=== PATIENT | female | born 1965 | race Caucasian/White ===

== ENCOUNTER → 2024-05-08 12:06 | Outpatient (REF) | payer OTHER, SELFPAY | LOC: RAD 12:06 | PROVIDERS: ATTENDING PHYSICIAN Nurse Practitioner | DX: M54.50 Low back pain, unspecified (principal) | CPT/HCPCS: 72110 ==

== ENCOUNTER → 2024-05-14 13:50 | Outpatient (REF) | payer OTHER, SELFPAY ==
--- NOTE | 2024-05-16 15:12 | PN.DIAED02 ---
Referral
DSME Class Series Code: [id number]
Referred For: Diabetes Self-Management Training, Management of Diabetes During , Medical Nutrition Therapy, Self-Blood Glucose Monitoring, Long-Term Complication Instruction, Accute Complication Instruction, Continuous Glucose Monitoring,
Medication management, Insulin Instruction, Care Coordination, Disease Management
PHI Release Authorization Form Signed: Yes
Demographic
(1) Type 2 diabetes mellitus without complications
Status: Acute Code(s): E11.9 - Type 2 diabetes mellitus without complications
Patient's primary language-: Swedish
Education: College degree
Occupation: Other
- Social
Primary Support Person: Self
Primary Care Takers: Self
Living Arrangements: Self & spouse, Family
- Learning Methods
Preferred Method: Lecture/audio, Hands-on demonstration, Video, Group discussion
Barriers to Learning: None
Glycemic Control
- Blood Glucose Monitoring Assessment
Date: 03/02/24 (FBS: 113 mg/dL)
Blood glucose monitoring at home: No (educated on a Contour Nex EZ meter)
- Hyperglycemia Assessment
Experiences Hyperglycemia: No
- Hypoglycemia Assessment
Patient carries glucose source: No
- Hemoglobin A1c
Date: 04/12/24
A1C Percentage (%): 6.5
Medical History of Diabetes
Family Diabetes History: Grandfather
Previous Diabetes Education: No
Previous visit with Dietitian: No
Complications/Comorbidity/Specialist: Other / symptoms (Irritable Bowel Syndrome)
Measures
- Anthropometrics
Height: 5 ft 3 in
Actual Weight: 207 lb
- Blood Pressure / Pulse
Blood pressure: 187/97 (185/88)
Pulse: 64 (65)
- Diabetes Management
Medical Management for Diabetes: Complete physical exam (04/04/24), Dental exam (11/24/23), Dilated eye exam (05/26/23), Other (covid vaccine: 07/28/20)
Notes:
Marci stated she is not on any blood pressure medication and that her numbers are usually low. Her initial B/P was elevated at 187/97 (64). I waited until after the visit to repeat and the results were: 159/88. She denied any headaches or dizziness
and stated she will re-check it when she went home. I contacted the primary care office and spoke with the RN to give her the above information. They were going to contact Marci to re-evaluate.
Self-Care
- Tobacco Usage
Do you now, or have you ever smoked?: Never smoked
- Alcohol & Drugs Usage
Drinks Alcohol: No
- Meals & Dining
Meals & Dining: Patient skips meals: No, Food Intolerance / Allergy: Yes (IBS), Cultural / Yarsanism Dietary Needs: No
Primary Food Cdc Associate: Self
Primary Aviation Safety Technician: Self
Dining Out Frequency: 1-3x per week
- Physical Activity
Physical Limitation: No
- Self Foot-Care
Foot Problems: None
- Patient-Self Assessment
General Health: Poor
Importance of Health: Extremely
Stress Level: Medium
Diabetes Interferes With:: Nothing
Barriers to Diabetes Management: Nothing
Depression Survey Score: 9
- Diabetes Identification
Carries Diabetes Identification: No
Care Plan
- Education Needs
Patient Education Needs: Diabetes disease process, Chronic complications, Acute complications, Medication, Monitoring, Physical activity, Psychosocial Adjustment, Nutritional management, Goal setting & problem solving
Recommended Diabetes Training Program based on assessment: Outpatient Diabetes Education Program
- Plan of Care
Plan of Care:
Marci presented for her initial assessment for the June DSME program. She was newly diagnosed in April, with an A1c of 6.5 %. She does not currently monitor her glucose at home but he MD office is doing a prior auth for a [employer] G7
sensor. I instructed her on how to use a Contour Next EZ meter and she was able to return demonstrate a fingerstick glucose. We reviewed a monitoring schedule and appropriate glucose levels fasting and 2 hours post meal. Marci's practitioner
offered her Metformin but she wanted to try to manage her glucose levels first without medication. She has a prescription for another A1c in 90 days. We discussed exercise and she is currently not doing any activity but plans to start walking. We
reviewed her goals and she will contact the office if she needs help setting up her Dexcom once it is approved. I spoke to her PCP's office regarding her elevated blood pressures before and after our appointment.
--- NOTE | 2024-05-16 15:30 | PN.DIAED04 ---
Education Record
- Education Record
Class Attended: Other (initial DSME assessment)
DSME Class Series Code: [id number]
Instructor: Nurse Practitioner (MARAH Coelho)
Pre-Program Knowledge: Needs review / Assistance
Pre-Test Score (%): 44
Goals
- Goal 1
Being Active: Exercise 30 minutes-5 times per week
Goals To Be Evaluated: Exercise 30 mins-5x/week
- Goal 2
Healthy Eating: Follow meal plan
Goals To Be Evaluated: Follow meal plan
- Goal 3
Monitoring: Follow monitoring schedule
Goals To Be Evaluated: Follow monitoring times
== END ==
LOC: WDC 13:50
PROVIDERS: ATTENDING PHYSICIAN Nurse Practitioner
DX: Z12.31 Encounter for screening mammogram for malignant neoplasm of breast (principal)
CPT/HCPCS: 77063; 77067

== ENCOUNTER → 2024-06-25 08:23 | Outpatient (REF) | payer OTHER, SELFPAY ==
--- NOTE | 2024-06-27 12:19 | PN.DIAED14 ---
This is to notify you that your patient with diabetes, TONY SANTOS ( 1965), has enrolled in our diabetes self-management classes that are being held at [facility].
These classes will include an introduction to diabetes, diet, medication, exercise and prevention of complications. At the end of our class series, you will receive a report of your patient's participation and progress for your records.
Please contact me at the Diabetes Center, , if there is any particular information regarding your patient that might be helpful to me.
Sincerely,
Nithin CRYSTAL-KLEVER,[facility]
--- NOTE | 2024-06-27 12:20 | PN.DIAED04 ---
Education Record
- Education Record
Class Attended: Class 1
DSME Class Series Code: [id number]
Instructor: Nurse Practitioner (MARAH Coelho)
Class Curriculum:
Outpatient Diabetes Education Program:
Class 1 (120 minutes)
Describe the diabetes disease process and treatment options
Diabetes management
Develop personal strategies to promote health and behavior change
Integrate psychosocial adjustment for daily living
Monitor blood glucose and other parameters. Interpret and use the results for self-management decision making
Prevent, detect, and treat acute complications
Class Length (mins): 120
Post-Class 1 Test Score (%): 100
== END ==
LOC: DES 08:23
PROVIDERS: ATTENDING PHYSICIAN Nurse Practitioner
DX: E11.9 Type 2 diabetes mellitus without complications (principal)
CPT/HCPCS: 99078

== ENCOUNTER → 2024-07-02 08:52 | Outpatient (REF) | payer OTHER, SELFPAY ==
--- NOTE | 2024-07-03 15:35 | PN.DIAED04 ---
Education Record
- Education Record
Class Attended: Class 2
DSME Class Series Code: [id number]
Instructor: Registered Dietitian (Johanna Lim, RD, LDN, CDE)
Class Curriculum:
Outpatient Diabetes Education Program:
Class 2 (120 minutes)
Incorporate nutritional management into lifestyle
Understanding nutritional value
Understanding carbohydrate counting
Class Length (mins): 120
== END ==
LOC: DES 08:52
PROVIDERS: ATTENDING PHYSICIAN Nurse Practitioner
DX: E11.9 Type 2 diabetes mellitus without complications (principal)
CPT/HCPCS: 99078

== ENCOUNTER → 2024-07-09 08:10 | Outpatient (REF) | payer OTHER, SELFPAY ==
--- NOTE | 2024-07-10 09:01 | PN.DIAED04 ---
Education Record
- Education Record
Class Attended: Class 3
DSME Class Series Code: [id number]
Instructor: Registered Dietitian
Class Curriculum:
Outpatient Diabetes Education Program:
Class 3 (120 minutes)
Incorporate nutritional management into lifestyle
Class Length (mins): 120
Post-Class 2 & 3 Test Score (%): 100
== END ==
LOC: DES 08:10
PROVIDERS: ATTENDING PHYSICIAN Nurse Practitioner
DX: E11.9 Type 2 diabetes mellitus without complications (principal)
CPT/HCPCS: 99078

== ENCOUNTER → 2024-07-16 07:58 | Outpatient (REF) | payer OTHER, SELFPAY ==
--- NOTE | 2024-07-17 08:25 | PN.DIAED04 ---
Education Record
- Education Record
Class Attended: Class 4
DSME Class Series Code: [id number]
Instructor: Nurse Practitioner (MARAH Coelho)
Class Curriculum:
Outpatient Diabetes Education Program:
Class 4 (120 minutes)
Develop personal strategies to promote health and behavior change
Incorporate physical activity into lifestyle
Utilize medications safety for maximum therapeutic effectiveness
Understand different medication/insulin mechanism of action
Preparing for travel
Class Length (mins): 120
Post-Class 4 Test Score (%): 80
== END ==
LOC: DES 07:58
PROVIDERS: ATTENDING PHYSICIAN Nurse Practitioner
DX: E11.9 Type 2 diabetes mellitus without complications (principal)
CPT/HCPCS: 99078

== ENCOUNTER → 2024-07-23 09:29 | Outpatient (REF) | payer OTHER, SELFPAY | LOC: DES 09:29 | PROVIDERS: ATTENDING PHYSICIAN Nurse Practitioner | DX: E11.9 Type 2 diabetes mellitus without complications (principal) | CPT/HCPCS: 99078 ==

== ENCOUNTER → 2024-12-01 12:13 | Outpatient (REF) | payer OTHER, SELFPAY | LOC: MRI 3T 12:13 | PROVIDERS: ATTENDING PHYSICIAN Psychiatry & Neurology Neurology; FAMILY PHYSICIAN Internal Medicine | DX: R20.2 Paresthesia of skin (principal); Z71.1 Person with feared health complaint in whom no diagnosis is made | CPT/HCPCS: 70551; 72141 ==